=== PATIENT | male | born 1990 | race Asian ===

== ENCOUNTER 2016-12-02 07:09 | Observation (INO) | payer SELFPAY ==
[2016-12-02] MEDS ORDERED: ONDANSETRON HCL 4 MG/2 ML VIAL ONE ×2 (07:25→08:10)
[2016-12-02] MEDS ORDERED: NORMAL SALINE 1,000 ML IV ONE ×5 (07:26→12:47)
[2016-12-02 07:47] LABS: CALCIUM 10.5 mg/dL (8.4-10.2); CREATININE 1.9 mg/dL (0.7-1.3); POTASSIUM 3.7 mmol/L (3.5-5.1)
[2016-12-02 08:13] LABS: ALBUMIN 4.7 g/dL (3.5-5.0); BASOPHIL# 0.1 X 10^3uL (0.0-0.1); BASOPHILS 0.7 % (0.0-2.0); BILIRUBIN, DIRECT 0.4 mg/dL (0.0-0.4); BILIRUBIN, TOTAL 1.4 mg/dL (0.2-1.3); EOSINOPHILS 0.4 % (0.0-6.0); HEMATOCRIT 46.3 % (42.0-54.0); HEMOGLOBIN 14.5 g/dL (14.0-18.0); LYMPHOCYTES 23.3 % (20.0-40.0); LYMPHOCYTES# 1.8 X 10^3uL (0.8-3.8); MAGNESIUM 2.2 mg/dL (1.6-2.3); MEAN CELL VOLUME 92.5 fL (80.0-100.0); MEAN CORPUS. HGB CONCENTRATION 31.4 g/dL (32.0-36.0); MEAN PLATELET VOLUME 7.9 fL (7.4-10.4); MONOCYTES 6.2 % (2.0-10.0); MONOCYTES# 0.5 X 10^3uL (0.2-1.0); NEUTROPHILS 69.4 % (54.0-75.0); NEUTROPHILS# 5.1 X 10^3uL (2.6-6.7); RED BLOOD COUNT 5.01 X 10^6uL (4.20-6.10); RED CELL DISTRIBUTION WIDTH 11.5 % (11.5-14.5); TOTAL PROTEIN 8.7 g/dL (6.3-8.2); WHITE BLOOD COUNT 7.5 X 10^3uL (3.9-10.7)
[2016-12-02 08:25] LABS: BETA HYDROXYBUTYRATE 1.76 mmol/L (<0.40)
[2016-12-02 12:06] LABS: CALCIUM 8.6 mg/dL (8.4-10.2); CREATININE 1.7 mg/dL (0.7-1.3); POTASSIUM 3.9 mmol/L (3.5-5.1)
[2016-12-02] MEDS ORDERED: POTASSIUM CHLORIDE/NS 1,000 ML IV ONE (16:20)
[2016-12-02] MEDS ORDERED: DEXTROSE 5% 0.5 NS 1,000 ML IV PRN (16:52)
[2016-12-02] MEDS ORDERED: NORMAL SALINE IV PRN (16:52)
[2016-12-02] MEDS ORDERED: INSULIN REGULAR HUMAN IV PRN (16:52)
[2016-12-02] MEDS ORDERED: ONDANSETRON HCL 4 MG/2 ML VIAL IV PRN (17:00)
[2016-12-02] MEDS ORDERED: LORazepam 2 MG/ML INJ IV PRN (17:01)
[2016-12-02 17:56] LABS: VENOUS PH 7.35 (7.31-7.41)
[2016-12-02 18:11] LABS: CALCIUM 8.8 mg/dL (8.4-10.2); CREATININE 1.6 mg/dL (0.7-1.3); POTASSIUM 4.2 mmol/L (3.5-5.1)
[2016-12-02 18:27] LABS: TROPONIN I 4.45 ng/mL (0.00-0.034)
[2016-12-02 18:35] VITALS: BP 159/77; PULSE 108; RESP 16; TEMP 99.3; O2SAT 97
--- NOTE | 2016-12-02 18:37 | ER PHYSICIAN DOCUMENTATION ---
Physician Documentation [facility] Name:Kemal Palmer Age:26 yrs Sex:Male :1990 Arrival Date:12/02/2016 Time:07:09 Bed4 Private MD: Omer Shah Disposition: 12/02/16 15:49 Admit ordered for Cali Cannon. Preliminary diagnosis are Vomiting - Dehydration, Intractable Vomiting, Diabetes Mellitus, Type 1 with Hyperglycemia. - Bed requested for Medical/Surgical. - Condition is Fair. - Problem is new. - Symptoms have improved. 23 HR OBS Yes - Notes: BRAT diet and slowly advance... 2 - 3 quarts of water every day. Phenergen Suppository 25mg per rectum every 6 hours as needed for nausea and vomiting Manage your IDDM with insulin based on your Glucoscans HPI: 12/02 07:40 This 26 yrs old Male presents to ER via Private Vehicle with cd complaints of Vomiting. 07:40 The patient presents to the emergency department with nausea, that is severe, with cd vomiting, that is intermittent, 8 times since last night, without any complaints of abdominal pain. Onset: The symptom(s)/episode began/occurred acutely, last night, 8 hour(s) ago. Possible causes: travel, [place], [place] 8,000 [place] elevation. The symptoms are aggravated by food , The symptoms are alleviated by nothing. Associated signs and symptoms: Pertinent positives: anorexia, nausea, vomiting, Pertinent negatives: abdominal pain, diarrhea, dysuria, fever, GI bleeding. Severity of symptoms: At their worst the symptoms were severe in the emergency department the symptoms are unchanged. The patient has a history of IDDM and found his Glucoses elevated last night but not severely high this morning. This AM it was 170 in the ED. He last ate at 1600 yesterday. Although he has not been eating, he gave himself Insulin Levemir 20 units SQ last night and then gave himself Levemir 20 units SQ and Novolog 8 units this morning.. Historical: - Allergies: No known drug Allergies; - Home Meds: 1. insulin 2. Lisinopril Oral 3. Novolog Sub-Q 4. levemir insulin - PMHx: Hypertension; Diabetes - IDDM; - PSHx: None; - Tetanus: Other NA . - Ebola Screening: : No symptoms or risks identified at this time. . - Immunization history: Flu Vaccine None. - Social history: Smoking status: Patient uses tobacco products, current every day smoker. Patient uses alcohol but reports only rare drinking. Patient/guardian denies using street drugs. ROS: 08:13 Eyes: Negative for injury, pain, redness, discharge, blurry vision and loss of vision. cd ENT: Negative for injury, pain, epistaxis and discharge. Neck: Negative for injury, pain, stiffness and swelling. Cardiovascular: Negative for chest pain, palpitations, edema and pleuritic pain. Respiratory: Negative for shortness of breath, dyspnea on exertion, cough, sputum production, wheezing, hemoptysis and pleuritic chest pain. Back: Negative for injury, pain or muscle spasms. : Negative for injury, bleeding, discharge, swelling, dysuria, frequency or urgency. MS/Extremity: Negative for injury, deformity, edema, calf tenderness, pain or coldness. Skin: Negative for injury, rash, itching and discoloration. 08:13 Neuro: Negative for headache, weakness, numbness, tingling, and seizure. cd 08:13 Constitutional: Positive for poor PO intake, Negative for chills, fever. 08:13 Abdomen/GI: Positive for nausea, vomiting, anorexia, Negative for abdominal pain, diarrhea, abdominal distension, hematemesis, black/tarry stool, rectal bleeding. 08:13 All other systems are negative. Exam: Head/Face: Normocephalic, atraumatic. Eyes: Pupils equal round and reactive to light, extra-ocular motions intact. Lids and lashes normal. Conjunctiva and sclera are non-icteric and not injected. Cornea within normal limits. Periorbital areas with no swelling, redness, or edema. ENT: Nares patent. No nasal discharge, no septal abnormalities noted. Tympanic membranes are normal and external auditory canals are clear. Oropharynx with no redness, swelling, or masses, exudates, or evidence of obstruction, uvula midline. Mucous membranes dry Neck: Trachea midline, no thyromegaly or masses palpated, and no cervical lymphadenopathy. Supple, full range of motion without nuchal rigidity, or vertebral point tenderness. No Meningismus. 08:13 Chest/axilla: Normal chest wall appearance and motion. Nontender with no deformity. cd No lesions are appreciated. 08:13 Respiratory: Lungs have equal breath sounds bilaterally, clear to auscultation and percussion. No rales, rhonchi or wheezes noted. No increased work of breathing, no retractions or nasal flaring. Skin: Warm, dry with normal turgor. Normal color with no rashes, no lesions, and no evidence of cellulitis. MS/ Extremity: Pulses equal, no cyanosis. Neurovascular intact. Full, normal range of motion. 08:13 Neuro: Awake and alert, GCS 15, oriented to person, place, time, and situation. Cranial nerves II-XII grossly intact. Motor strength 5/5 in all extremities. Sensory grossly intact. Cerebellar exam normal. Normal gait. 08:13 Constitutional: The patient appears alert, awake, non-diaphoretic, non-toxic, well developed, well nourished, anxious, in obvious distress, moderately distressed. 08:13 Cardiovascular: Rate: tachycardic, actual rate is 104 bpm, Rhythm: regular, Pulses: no pulse deficits are appreciated, Heart sounds: normal. 08:13 Abdomen/GI: Inspection: abdomen appears normal, Bowel sounds: normal, active, Palpation: abdomen is soft and non-tender, Indicators: McBurney's point is not tender, Obrien's sign is negative. 08:13 Back: Exam negative for acute changes. 08:13 Skin: Exam negative for acute changes. Vital Signs: 07:14 BP 164 / 99; Pulse 104; Resp 20; Temp 98.1(O); Pulse Ox 99% on R/A; Weight 77.11 kg; nf Height 5 ft. 9 in. (175.26 cm); Pain 0/10; 08:46 BP 174 / 97; Pulse 83; Resp 20; Pulse Ox 98% on R/A; nf 09:07 Resp 18; nf 11:07 BP 146 / 81; Pulse 87; Resp 16; Pulse Ox 95% on R/A; Pain 0/10; nf 15:46 BP 167 / 94; Pulse 98; Resp 20; Pulse Ox 98% on R/A; Pain 0/10; nf 16:22 BP 163 / 85; Pulse 110; Resp 14; Pulse Ox 88% on R/A; tg 16:23 Pulse Ox 93% on 1 lpm NC; tg 18:26 Pulse 107; Pulse Ox 98% on 1 lpm NC; tg 07:14 Body Mass Index 25.10 (77.11 kg, 175.26 cm) nf [place] Coma Score: 08:13 Eye Response: spontaneous(4). Verbal Response: oriented(5). Motor Response: obeys cd commands(6). Total: 15. MDM: 07:35 Data interpreted: Pulse oximetry: on room air is 99 %. Interpretation: Hyperventilating.cd 07:48 Differential diagnosis: cholecystitis, pancreatitis, viral gastroenteritis, cd gastroenteritis, Acute Altitude Illness, Severe Dehydration, Flu Syndrome. 07:52 Data reviewed: vital signs, nurses notes, old medical records, and as a result, I will cd continue to observe the patient, administer IV fluids, NS bolus, NS maintenence, and Zofran for nausea / vomiting. 08:00 Patient medically screened. cd 08:05 Counseling: I had a detailed discussion with the patient and/or guardian regarding: the cd historical points, exam findings, and any diagnostic results supporting the discharge/admit diagnosis. 08:24 Response to treatment: the patient's symptoms have mildly improved after treatment, and cd as a result, I will continue to observe the patient. 15:49 Medication response: The patient's symptoms are unchanged despite medication cd administration, Patient is unable to keep down ice chips, therefore will be admitted to Dr. Cannon's service to 23 hours Observation, for IV hydration, IV anti-emetics and IDDM management. His last Glucose was 177. 16:27 Physician consultation: Cali Cannon MD was called at 16:15, was contacted at 16:25, cd regarding admission, to the floor, consult, patient's condition, need to come to ED to see patient, and will see patient in inpatient room, shortly, later today. 12/02 17:56 Order name: VENOUS PH; Complete Time: 18:37 EDMS 12/02 18:28 Order name: TROPONIN I; Complete Time: 18:37 EDMS 12/02 18:29 Order name: BASIC METABOLIC PANEL; Complete Time: 18:37 EDMS 12/02 07:48 Order name: BASIC METABOLIC PANEL; Complete Time: 08:27 EDMS 12/02 08:00 Interpretation: Normal Except: GLUCOSE 199; CREATININE 1.9; Dehydration, Hyperglycemia. cd 12/02 08:15 Order name: CBC AUTO DIF, MDIF/RMOR IF IND; Complete Time: 08:27 EDMS 12/02 08:16 Interpretation: Normal. 12/02 08:16 Order name: MAGNESIUM; Complete Time: 08:27 EDMS 12/02 08:16 Interpretation: Normal. 12/02 08:16 Order name: HEPATIC PANEL; Complete Time: 08:27 EDMS 12/02 08:16 Interpretation: Normal. 12/02 08:16 Order name: LIPASE; Complete Time: 08:27 EDMS 12/02 08:17 Interpretation: Normal. 12/02 08:26 Order name: BETA HYDROXYBUTYRATE; Complete Time: 08:27 EDMS 12/02 08:27 Interpretation: Abnormal: BETA HYDROXYBUTYRATE 1.76; Elevated. 12/02 12:07 Order name: BASIC METABOLIC PANEL; Complete Time: 12:14 EDMS 12/02 15:52 Order name: Accucheck; Complete Time: 16:21 12/02 16:23 Order name: Oxygen; Complete Time: 16:34 tg Dispensed Medications: 07:25 Drug: NS 0.9% 1000 ml; Route: IV; Rate: bolus; Site: left antecubital; nf 08:03 Follow up: IV Status: Completed infusion; IV Intake: 1000ml nf 07:25 Drug: Zofran 4 mg; Route: IVP; Infused Over: 2 mins; Site: left antecubital; nf 08:02 Follow up: Response: No change in condition nf 08:08 Drug: NS 0.9% 1000 ml; Route: IV; Rate: bolus; Site: left antecubital; nf 09:22 Follow up: IV Status: Completed infusion; IV Intake: 1000ml nf 08:08 Drug: Zofran 4 mg; Route: IVP; Infused Over: 2 mins; Site: left antecubital; nf 08:33 Follow up: Response: No change in condition nf 08:46 Drug: Phenergan 12.5 mg; Route: IVP; Site: left antecubital; nf 09:22 Follow up: Response: Vomiting decreased nf 09:23 Drug: NS 0.9% 1000 ml; Route: IV; Rate: bolus; Site: left antecubital; nf 11:07 Follow up: IV Status: Completed infusion; IV Intake: 1000ml nf 11:07 Drug: NS 0.9% 1000 ml; Route: IV; Rate: bolus; Site: left antecubital; nf 12:39 Follow up: IV Status: Completed infusion; IV Intake: 1000ml nf 11:57 Drug: phenergan 6.25 mg; Route: IVP; Site: left antecubital; nf 12:39 Follow up: Response: Nausea is decreased nf 12:40 Drug: NS 0.9% 1000 ml; Route: IV; Rate: bolus; Site: left antecubital; nf 14:00 Follow up: IV Status: Completed infusion; IV Intake: 1000ml nf 16:18 Drug: NS with KCl 20 mEq/L 150 ml/hr; Volume: 1000 ml; Route: IV; Rate: 150 ml/hr; tg Infused Over: 7 hrs; Site: left antecubital; Delivery: Pump; 18:10 Follow up: IV Status: Completed infusion; IV Intake: 300ml tg 16:31 Drug: Phenergan 6.25 mg; Route: IVP; Site: left antecubital; tg 18:10 Follow up: Response: No adverse reaction; Nausea is decreased tg Point of Care Testing: Blood Glucose: 07:20 Blood Glucose: 170 mg/dL; nf 08:33 Blood Glucose: 165 mg/dL; nf 15:46 Blood Glucose: 177 mg/dL; nf 17:49 Blood Glucose: 209 mg/dL; tg Urine Dip: 11:32 pH: 5.5; ; Specific [place]: 1.025; Ketones: Trace; Glucose: Positive; Protein: ma Positive (+++); Leukocytes: Negative; Bilirubin: Small (+) ; Urobilinogen: Normal Ranges: Critical Glucose Levels:Adult <50 mg/dl or >400 mg/dl <40 mg/dl or >180 mg/dl Signatures: Eric Ventura RN RN tg Chula Overton RN RN nf Omer Leach MD MD cd
--- NOTE | 2016-12-02 18:37 | ER NURSING DOCUMENTATION ---
Nurse's Notes [facility] Name:Kemal Palmer Age:26 yrs Sex:Male :1990 Arrival Date:12/02/2016 Time:07:09 Bed4 Private MD: Diagnosis:Vomiting - Dehydration;Intractable Vomiting;Diabetes Mellitus, Type 1 with Hyperglycemia Presentation: 12/02 07:14 Transition of care: patient was not received from another setting of care. nf 07:14 Acuity: HEIDI 3 nf 07:14 Method Of Arrival: Private Vehicle nf 07:14 Presenting complaint: Patient states: vomiting since 1999 yesterday, reports nf approximately 8 episodes since, denies diarrhea/pain/fever; IDDM with last food and fluid intake yesterday 1500, did not check FSBS this morning; arrived from [place] yesterday. 07:30 Notified ED Physician of patient's arrival and CC Dr. Leach notified. nf Triage Assessment: 07:14 General: Appears ill, well nourished, well groomed, Behavior is pleasant. nf 07:14 Pain: Denies pain. nf 07:14 Neuro: No deficits noted. Cardiovascular: Capillary refill < 3 seconds. Respiratory: No nf deficits noted. Respiratory effort is even, unlabored, Respiratory pattern is regular. GI: Reports intolerance of fluids, intolerance of food, nausea, vomiting, Denies bloating, constipation, diarrhea, pain. Historical: - Allergies: No known drug Allergies; - Home Meds: 1. insulin 2. Lisinopril Oral 3. Novolog Sub-Q 4. levemir insulin - PMHx: Hypertension; Diabetes - IDDM; - PSHx: None; - Tetanus: Other NA . - Ebola Screening: : No symptoms or risks identified at this time. . - Immunization history: Flu Vaccine None. - Social history: Smoking status: Patient uses tobacco products, current every day smoker. Patient uses alcohol but reports only rare drinking. Patient/guardian denies using street drugs. Screenin:14 Infectious Disease Risk None. Abuse screen: Denies threats or abuse. Nutritional nf screening: No deficits noted. Assessment: 07:14 See Triage Assessment done by same RN. nf 08:08 Reassessment: up to bathroom with steady gait, was unable to void. nf 08:34 Reassessment: nausea and slight vomiting continue. nf 09:07 Reassessment: sleeping. nf 09:24 Reassessment: resting and denies needs. nf 15:48 Reassessment: patient to be admitted; patient and family aware. nf 16:15 Reassessment: Pt standing up, vomiting. Dr. Leach notified. . tg 16:33 Reassessment: exam by Kenia. nf Vital Signs: 07:14 BP 164 / 99; Pulse 104; Resp 20; Temp 98.1(O); Pulse Ox 99% on R/A; Weight 77.11 kg; nf Height 5 ft. 9 in. (175.26 cm); Pain 0/10; 08:46 BP 174 / 97; Pulse 83; Resp 20; Pulse Ox 98% on R/A; nf 09:07 Resp 18; nf 11:07 BP 146 / 81; Pulse 87; Resp 16; Pulse Ox 95% on R/A; Pain 0/10; nf 15:46 BP 167 / 94; Pulse 98; Resp 20; Pulse Ox 98% on R/A; Pain 0/10; nf 16:22 BP 163 / 85; Pulse 110; Resp 14; Pulse Ox 88% on R/A; tg 16:23 Pulse Ox 93% on 1 lpm NC; tg 18:26 Pulse 107; Pulse Ox 98% on 1 lpm NC; tg 07:14 Body Mass Index 25.10 (77.11 kg, 175.26 cm) nf Marco A Coma Score: 08:13 Eye Response: spontaneous(4). Verbal Response: oriented(5). Motor Response: obeys cd commands(6). Total: 15. ED Course: 07:10 Patient arrived in ED. arc 07:13 Chula Overton, ROXANN is Primary Nurse. nf 07:14 Triage completed. nf 07:14 Allergy Band Placed Arm band placed on Bed in low position Call Light in Reach Gowned nf HOB Elevated Side rails up x1 Emesis basin given. Family accompanied patient. 07:14 Valuables Remains with patient Adult w/ patient. Door closed. Noise minimized. Lights nf dimmed. Moved to private room. Verbal reassurance given. Warm blanket given. Pillow given. 07:21 Inserted peripheral IV: 20 gauge in left antecubital area and blood collected. arc 08:00 Omer Leach MD is Attending Physician. cd 08:03 Assisted to bathroom. nf 11:28 Assisted to bathroom. nf 15:30 Diet: failed po challenge with ice chips. nf 15:48 Cali Cannon MD is Admitting Physician. cd 16:23 Oxygen Oxygen administration via nasal cannula @ 1L/min. tg 17:12 Report given to Kal Ventura RN. nf 18:27 Notified M/S ROXANN Collins of elevated troponin. tg Administered Medications: 07:25 Drug: NS 0.9% 1000 ml; Route: IV; Rate: bolus; Site: left antecubital; nf 08:03 Follow up: IV Status: Completed infusion; IV Intake: 1000ml nf 07:25 Drug: Zofran 4 mg; Route: IVP; Infused Over: 2 mins; Site: left antecubital; nf 08:02 Follow up: Response: No change in condition nf 08:08 Drug: NS 0.9% 1000 ml; Route: IV; Rate: bolus; Site: left antecubital; nf 09:22 Follow up: IV Status: Completed infusion; IV Intake: 1000ml nf 08:08 Drug: Zofran 4 mg; Route: IVP; Infused Over: 2 mins; Site: left antecubital; nf 08:33 Follow up: Response: No change in condition nf 08:46 Drug: Phenergan 12.5 mg; Route: IVP; Site: left antecubital; nf 09:22 Follow up: Response: Vomiting decreased nf 09:23 Drug: NS 0.9% 1000 ml; Route: IV; Rate: bolus; Site: left antecubital; nf 11:07 Follow up: IV Status: Completed infusion; IV Intake: 1000ml nf 11:07 Drug: NS 0.9% 1000 ml; Route: IV; Rate: bolus; Site: left antecubital; nf 12:39 Follow up: IV Status: Completed infusion; IV Intake: 1000ml nf 11:57 Drug: phenergan 6.25 mg; Route: IVP; Site: left antecubital; nf 12:39 Follow up: Response: Nausea is decreased nf 12:40 Drug: NS 0.9% 1000 ml; Route: IV; Rate: bolus; Site: left antecubital; nf 14:00 Follow up: IV Status: Completed infusion; IV Intake: 1000ml nf 16:18 Drug: NS with KCl 20 mEq/L 150 ml/hr; Volume: 1000 ml; Route: IV; Rate: 150 ml/hr; tg Infused Over: 7 hrs; Site: left antecubital; Delivery: Pump; 18:10 Follow up: IV Status: Completed infusion; IV Intake: 300ml tg 16:31 Drug: Phenergan 6.25 mg; Route: IVP; Site: left antecubital; tg 18:10 Follow up: Response: No adverse reaction; Nausea is decreased tg Point of Care Testing: Blood Glucose: 07:20 Blood Glucose: 170 mg/dL; nf 08:33 Blood Glucose: 165 mg/dL; nf 15:46 Blood Glucose: 177 mg/dL; nf 17:49 Blood Glucose: 209 mg/dL; tg Urine Dip: 11:32 pH: 5.5; ; Specific [place]: 1.025; Ketones: Trace; Glucose: Positive; Protein: ma Positive (+++); Leukocytes: Negative; Bilirubin: Small (+) ; Urobilinogen: Normal Ranges: Intake: 08:03 IV: 1000ml; Total: 1000ml. nf 09:22 IV: 1000ml; Total: 2000ml. nf 11:07 IV: 1000ml; Total: 3000ml. nf 12:39 IV: 1000ml; Total: 4000ml. nf 14:00 IV: 1000ml; Total: 5000ml. nf 18:10 IV: 300ml; Total: 5300ml. tg Outcome: 12:56 Discharge ordered by . cd 15:49 Decision to Admit by Provider. cd 18:20 Admitted to Med/surg accompanied by nurse, via stretcher. tg 18:20 Report given to ROXANN Collins 18:20 Discharge Assessment: Patient drowsy 18:26 Condition: unchanged tg 18:26 Instructed on need to admit 18:36 Patient left the ED. tg Signatures: Eric Ventura RN RN tg Kimberli Green RN RN ma Friel, Nicole, RN RN nf Daley, Chris, MD MD cd Chew, Amelia, Zay Reg arc
[2016-12-02] MEDS ORDERED: INSULIN LISPRO 100 UNIT/ML ML SUBCUT SCH (19:00)
[2016-12-02 19:02] LABS: CKMB 20.8 ng/mL (0.00-2.37)
--- NOTE | 2016-12-02 19:09 | DC SUMMARY: IM Note ---
Discharge Summary: IM/Peds Provider: Date of Admission: 12/02/16 Admitting Provider: JORGE LANDRY MD Attending Provider: JORGE LANDRY MD Discharging Provider: JORGE LANDRY MD Primary Care Provider: Discharge Date: 12/02/16 - Diagnosis (1) Elevated troponin Status: Acute (2) DKA (diabetic ketoacidoses) Status: Acute Qualifiers: Diabetes mellitus type: type 1 Diabetes mellitus complication detail: without coma Qualified Code(s): E10.10 - Type 1 diabetes mellitus with ketoacidosis without coma (3) Nausea and vomiting Status: Acute Qualifiers: Vomiting type: unspecified Vomiting Intractability: intractable Qualified Code(s): R11.2 - Nausea with vomiting, unspecified Hospital Course: Patient was just admitted to the medical floor for nausea and vomiting with mild DKA in the setting of type 1 diabetes. He has not had any chest pain or palpitations. Perhaps some mild shortness of breath but no cough or wheezing. He has not had any swelling. As per the documented, his nausea and vomiting began at about 4:00 in the afternoon yesterday (so now 27 hours ago). in the process of further evaluating his nausea and vomiting on admission, a troponin level was added to the emergency department labs. This came back at greater than 4. A repeat on the same sample was still abnormal, and a CPK-MB on the same sample was greater than 20. A repeat troponin has been ordered from this evening but is still pending. EKG shows sinus tachycardia but no acute ST segment changes. On examination, he remains sedated from recent Phenergan but is in no distress. His lungs remained clear anterolaterally. His cardiac examination shows persistent tachycardia. He does have a 2/6 holosystolic murmur best heard at the apex. Without chest pain, no nitroglycerin has been given. Considering timing, no blood except when given. Will administer aspirin , chewable. With regard to his diabetes, we had intended to start him on D5 half-normal saline with a concurrent insulin drip starting at 5 units per hour. However, this had not been started by the time of his transfer. History is have generally been under 200 but with the most recent one being just above. He will receive 4 units of lispro insulin prior to transfer. With regard to his nausea, he has received Zofran and Phenergan. I have spoken with cardiology. They agreed that helicopter transport is not necessary considering the timing of his symptoms and absence of STEMI on EKG. We will transport to [facility] via ambulance. He will be admitted there to cardiac monitored unit. Hospitalist service with cardiology consultation. I have reviewed this with the patient and his . Time spent discussing smoking cessation with patient: 3 to 10 minutes - Time Spent with Patient Total time spent providing and/or coordinating discharge services: Time with patient DS: Greater than 30 minutes Discharge - Patient/Caregiver Discharge Instructions Activity Level: Bedrest. Emergent transfer. Diet: Nothing by mouth. Overall discharge status: patient is not back to baseline Print Language: POLISH Disposition: [facility] Discharge Summary Data - Medication History Medication History: Inpatient Medications 12/02/16 19:00 Insulin Lispro [HumaLOG] 4 unit SUBCUT ONCE Procedures and tests throughout hospitalization: Completed Lab Orders 12/02/16 17:45 CKMB [CHEM] Stat CREATINE KINASE [CHEM] Stat Pending Orders 12/02/16 18:53 TROPONIN I [CHEM] Stat 12/02/16 19:00 Insulin Lispro [HumaLOG] 4 unit SUBCUT ONCE Labs on day of discharge: Labs from last 24 hours 12/02/16 18:53 Troponin I Pending IM: Discharge Physical Exam - I&O/Vital Signs I&O: Intake & Output 12/02/16 12/02/16 12/02/16 05:59 13:59 21:59 Weight 69.967 kg Vital Signs: Last Vital Signs Temp 37.4 C 12/02/16 18:52 Pulse 108 H 12/02/16 18:52 Resp 16 12/02/16 18:52 BP 159/77 12/02/16 18:52 Pulse Ox 97 12/02/16 18:52 Oxygen Delivery Method Room Air - Constitutional General appearance: Present: average body habitus - Head Head exam: Present: atraumatic - Eye Eye exam: Present: EOMI, PERRL - ENT ENT exam: Present: mucous membranes dry - Neck Neck exam: Present: full ROM - Respiratory Respiratory exam: Present: CTAB. Absent: accessory muscle use, rales, rhonchi, wheezes - Cardiovascular Cardiovascular exam: Present: systolic murmur, tachycardia. Absent: S3, S4 - GI/Abdominal GI/Abdominal exam: Present: normal bowel sounds, soft. Absent: organomegaly, rebound, rigid, tenderness - Extremities Exam Extremities exam: Absent: calf tenderness, edema - Back Exam Back exam: Absent: CVA tenderness (L), CVA tenderness (R) - Neurological Exam Neurological exam: Present: oriented X3, other (sedated) - Psychiatric Psychiatric exam: Absent: agitated, anxious, depressed - Skin Skin exam: Absent: rash
--- NOTE | 2016-12-03 06:23 | HISTORY & PHYSICAL ---
DATE OF ADMISSION: 12/02/16 ATTENDING PHYSICIAN: Cali Cannon MD CHIEF COMPLAINT: Nausea and vomiting. HISTORY OF PRESENT ILLNESS: The patient is a 26-year-old male with type 1 diabetes, with a history of diabetic ketoacidosis about 2-1/2 years ago. Traveling from [place]. They drove up to [place] yesterday arriving at about 4:00 oclock. They had just eaten at a restaurant where he had some chicken nuggets and Sprite but no questionable foods, and nothing that was off in appearance or odor. Upon arrival in [place], he had a fairly sudden onset of nausea and vomiting, which has persisted throughout the night, and he came into the Emergency Department for further evaluation. He has had some mild abdominal discomfort in association with his vomiting, but had not had any abdominal pain preceding this. He denies any diarrhea or significant problems with constipation. He denies any fevers or chills. No headache. No focal changes in strength or sensation. He has been more sedated since being in the Emergency Department with IV medications and with poor sleep last night. He denies any chest pain or palpitations. No cough or wheeze. No dysuria, hematuria or discharge. No skin rashes. No ulcers. With regard to his diabetes, his states that he did have a hospitalization for diabetic ketoacidosis she thinks about 2-1/2 years ago with unknown precipitant. He states that his diabetes is usually well controlled, although he does not recall what his most recent A1C was. He uses long-acting Levemir insulin at 30 units at night and then usually uses a 10-unit or so dosing of short-acting NovoLog as needed throughout the day. He takes Lisinopril for hypertension. He has not had any kidney problems with his diabetes as far that he is aware, and he has not had any problems with retinopathy or neuropathy as far that he is aware. PAST MEDICAL HISTORY 1. Type 1 diabetes, insulin dependent. 2. Hypertension. PAST SURGICAL HISTORY: None. ALLERGIES: None. MEDICATIONS Lisinopril of unknown dose p.o. daily. Levemir insulin 30 units subcutaneous q.h.s. NovoLog insulin subcutaneous as needed based upon carbohydrate intake and sugar levels. SOCIAL HISTORY: Positive tobacco at about pack per day. Rare alcohol. No illicit drugs. Specifically no marijuana. FAMILY HISTORY: Noncontributory. REVIEW OF SYSTEMS: Pertinent positives and negatives are as above. Remainder are negative. PHYSICAL EXAMINATION VITAL SIGNS: Temperature 98.1, with a blood pressure of 164/99 initially and most recently 163/85. Pulse initially 104 and down into the 90s. Respiratory rate 20. 99% on room air. Weight of 77 kilograms. HEENT: Normocephalic, atraumatic. Sinuses nontender. Pupils equal, round and reactive to light. Oropharynx is clear with mildly dry mucous membranes. NECK: Supple without lymphadenopathy or masses. No thyromegaly or nodules. CHEST: Clear to auscultation bilaterally. No change in tactile fremitus. CARDIAC: Regular rhythm but mildly tachycardic. I do not hear an S3, S4 or murmur. No jugular venous distention at 30 degrees. No lower extremity edema. Has 2+ bilateral DP pulses. ABDOMEN: Positive bowel sounds. Soft, nontender, nondistended. No hepatosplenomegaly. No masses. BACK: No costovertebral angle tenderness. EXTREMITIES: No cyanosis or clubbing. SKIN: No rashes. Multiple tattoos. NEUROLOGIC: Patient alert and oriented x3 but very sleep after receiving most recent dose of Phenergen. Light touch and sensation intact throughout. Strength is symmetric in the bilateral upper and lower extremities. Facial expressions are symmetric. LABORATORY STUDIES: White blood cell count 7.5 with hematocrit of 46 and platelets of 447. Normal differential. Chemistries showing normal sodium and potassium with initial creatinine of 1.9 and now down to 1.7. Glucose initially 199 and most recently down to 178. Calcium mildly elevated at 10.5 initially and now down to 8.6. LFTs showing a mild elevation of total bilirubin of 1.4 with a normal direct bilirubin at 0.4. Total protein mildly high at 8.7. Lipase is normal. Initial beta-hydroxybutyrate 1.76 which is mildly elevated. Urinalysis showing specific gravity of 1.025 with trace ketones and positive glucose and positive protein. Leukocyte Estrace negative. ASSESSMENT AND PLAN 1. Diabetic ketoacidosis: Mild. At this time, remains NPO status with nausea and vomiting. Has not had any significant oral intake since yesterday evening. Reason for this is unclear. Differential includes altitude related illness versus gastroenteritis, although he has not had any diarrhea. Doubt cardiac but will check a troponin. LFTs without significant inflammation. Lipase without evidence of inflammation. No evidence of urinary tract infection. I will treat supportively with oxygen, which has helped with altitude issues. Antiemetics as needed. Will initiate diabetic ketoacidosis protocol. Without any oral intake for the last 24 hours, will implement maintenance D5 half-normal saline at 150 mL/hour. He has already received 5 liters of fluid resuscitation in the Emergency Department. Will initiate an insulin drip starting at 5 units. Will be checking finger-stick blood sugars every 1 hour and chemistries every 2 hours for now. Further adjustments depending upon his course. Ice chips and sips for now. I will advance as tolerated in the future. 2. Diabetes mellitus, type 1. As above, treating with IV insulin. Hold off on Levemir and NovoLog for now but will plan to transition back to a usual subcutaneous regiment once he is taking orals. 3. Nausea and vomiting: As above. Etiology is unclear. Could represent altitude related illness versus gastroenteritis versus the diabetic ketoacidosis itself. Doubt cardiac. No evidence of hepatitis. No evidence of pancreatitis. No other source of infection found. 4. COR status: Patient is full cor, full tube. 5. DVT prophylaxis: Will ambulate. Depending on his course, may need to consider initiating further prophylaxis tomorrow. 6. Vaccine status: Unknown. Will review per usual protocol. [facility]
== END 2016-12-02 19:30 | disposition short-term general hospital (02) ==
LOC: ER 07:09 → IN 18:28
PROVIDERS: ADMIT Internal Medicine; ATTEND Internal Medicine
DX: E10.10 Type 1 diabetes mellitus with ketoacidosis without coma (principal); E86.0 Dehydration; R74.8 Abnormal levels of other serum enzymes; I38 Endocarditis, valve unspecified; I10 Essential (primary) hypertension; Z79.4 Long term (current) use of insulin; Z79.899 Other long term (current) drug therapy
CPT/HCPCS: 36415; 80048; 80076; 82010; 82550; 82553; 82800; 83690; 83735; 84484; 85025; 99285; A0425; A0427; G0378; J1815; J2405; J2550; J3480; J7030